=== PATIENT | female | born 1990 ===

== ENCOUNTER 2023-06-01 07:48 | Emergency (ER) | payer SELFPAY ==
[~2023-06-01] VITALS: Ht 167.6 cm; Wt 59.0 kg
[2023-06-01 07:52] VITALS: PULSE 73; RESP 18; TEMP 97; O2SAT 98
== END 2023-06-01 10:00 | disposition left against medical advice (07) ==
LOC: ER 07:49
DX: F19.239 Other psychoactive substance dependence with withdrawal, unspecified (principal); R11.0 Nausea; Z53.21 Procedure and treatment not carried out due to patient leaving prior to being seen by health care provider
CPT/HCPCS: 99281